=== PATIENT | female | born 1970 | race African-American/Black ===

== ENCOUNTER 2020-09-28 08:53 | Inpatient (IN) | payer OTHER, MEDICAID ==
[~2020-09-28] VITALS: Ht 165.1 cm; Wt 85.3 kg
[2020-09-28 10:27] LABS: BASOPHILS % 0.3 % (0.0-2.0); HEMATOCRIT. 35.9 % (36.0-48.0); HEMOGLOBIN. 11.1 g/dL (12.0-16.0); LYMPHOCYTES % 17.3 % (20.0-50.0); MEAN CORPUSCULAR HEMOGLOBIN 27.5 pg (28.0-32.0); MEAN CORPUSCULAR VOLUME 88.4 fL (81.0-99.0); MEAN PLATELET VOLUME 8.3 fl (7.4-10.4); MONOCYTES % 4.4 % (2.0-8.0); PLATELET 324 x1000/uL (130-400); RED BLOOD CELL COUNT 4.06 mill/uL (4.2-5.4); RED CELL DISTRIBUTION WIDTH 20.7 % (11.6-14.6)
[2020-09-28] MEDS ORDERED: DEXTROSE 50% WATER 50ML SYRINGE IV NR (11:00)
[2020-09-28] MEDS ORDERED: FENTANYL CITRATE/PF 50MCG/ML 2ML VIAL IV ONE (11:00)
[2020-09-28] MEDS ORDERED: ACETAMINOPHEN 650MG/20.3ML UDC GT PRN (11:15)
[2020-09-28] MEDS ORDERED: ONDANSETRON HCL 4MG/2ML INJ IV PRN (11:15)
[2020-09-28] MEDS ORDERED: HYDROCODONE/ACETAMINOPHEN 5/325MG TABLET PO PRN (11:15)
[2020-09-28] MEDS ORDERED: NA PHOS,M-B/NA PHOS,DI-BA ENEMA 118ML PR PRN (11:15)
[2020-09-28] MEDS ORDERED: DEXTROSE 50% WATER 50ML SYRINGE IV PRN (11:15)
[2020-09-28] MEDS ORDERED: DOCUSATE SODIUM 100MG CAPSULE PO PRN (11:15)
[2020-09-28] MEDS ORDERED: ACETAMINOPHEN 650MG SUPP PR PRN (11:15)
[2020-09-28] MEDS ORDERED: IPRATROPIUM/ALBUTEROL 0.5-3(2.5)MG/3ML NEB NEB PRN (11:15)
[2020-09-28] MEDS ORDERED: ASPIRIN 300MG SUPP PR NR (11:15)
[2020-09-28] MEDS ORDERED: MAGNESIUM/ALUMINUM HYDROXIDE/SIMETHICONE 30ML UDC PO PRN (11:15)
[2020-09-28] MEDS ORDERED: GUAIFENESIN 200MG/10ML SUGAR FREE UDC PO PRN (11:15)
[2020-09-28] MEDS ORDERED: DIPHENHYDRAMINE 50MG/ML VIAL IV PRN (11:15)
[2020-09-28] MEDS ORDERED: LORAZEPAM 0.5MG TABLET PO PRN (11:15)
[2020-09-28] MEDS ORDERED: NALOXONE HCL 0.4MG/ML VIAL IV PRN (11:30)
[2020-09-28] MEDS ORDERED: DEXT 10% WATER 1,000 ML IV ONE (11:30)
[2020-09-28] MEDS ORDERED: PIPERACILLIN/TAZ 3.375G PREMIX 50 ML IV SCH (12:00)
[2020-09-28] MEDS ORDERED: IOHEXOL-350 100 ML BOTTLE ONE (12:26)
[2020-09-28] MEDS: FAMOTIDINE 20MG/2ML VIAL IV SCH (12:43)
[2020-09-28] MEDS: ENOXAPARIN 40MG/0.4ML SYR SUBCUT SCH (12:43)
[2020-09-28] MEDS: BLOOD SUGAR DIAGNOSTIC STRIP TEST SCH ×2 (12:45→16:34)
[2020-09-28] MEDS ORDERED: LORAZEPAM 2MG/ML CPJ ONE (12:51)
[2020-09-28 13:23] LABS: BG BASE EXCESS -7.1 mmol/L (-2.0-2.0); BG CARBOXYHEMOGLOBIN 0.3 % (0.5-1.5); BG DEOXYHEMOGLOBIN 8.4 % (0.0-5.0); BG HCO3 ACT 15.8 mmol/L (22.0-26.0); BG METHEMOGLOBIN 0.2 % (0.0-1.5); BG OXYGEN SATURATION 91.6 % (92.0-98.5); BG OXYHEMOGLOBIN 91.1 % (94.0-97.0); BG PCO2 24.3 mmHg (35.0-45.0); BG PO2 70.3 mmHg (75.0-100.0); BG SAMPLE SITE RIGHT RADIAL; BG TOTAL HEMOGLOBIN 10.8 g/dL (12.0-18.0); BG VENT MODE ROOM AIR
[2020-09-28] MEDS ORDERED: LORAZEPAM 2MG/ML CPJ IV PRN (13:30)
[2020-09-28] MEDS: DEXTROSE 5% WATER 1,000 ML IV SCH (13:34)
[2020-09-28 14:22] LABS: CLARITY URINE CLEAR (CLEAR); COLOR URINE DARK YELLOW (YELLOW); KETONES URINE TRACE (NEGATIVE); LEUKOCYTE ESTERASE URINE 1+ (NEGATIVE); NITRITE URINE NEGATIVE (NEGATIVE); OCCULT BLOOD URINE 1+ (NEGATIVE); PROTEIN URINE 3+ (NEGATIVE); SPECIFIC GRAVITY URINE 1.036 (1.005-1.030)
[2020-09-28 15:20] LABS: *AMPHETAMINES SCREEN URINE NEGATIVE (NEGATIVE)
[2020-09-28 15:21] LABS: *BARBITURATES SCREEN URINE NEGATIVE (NEGATIVE); *BENZODIAZEPINES SCREEN URINE NEGATIVE (NEGATIVE); *COCAINE SCREEN URINE NEGATIVE (NEGATIVE); CANNABINOID URINE SCREEN NEGATIVE (NEGATIVE); METHADONE URINE SCREEN NEGATIVE (NEGATIVE); OPIATES URINE SCREEN NEGATIVE (NEGATIVE); PHENCYCLIDINE URINE SCREEN NEGATIVE (NEGATIVE)
[2020-09-28 17:23] LABS: CREATINE KINASE MB FRACTION 2.4 ng/mL (0.5-3.6)
[2020-09-28 17:45] LABS: HEPATITIS B SURFACE ANTIGEN NEGATIVE
[2020-09-28 18:14] LABS: HEPATITIS A AB IGM NEGATIVE (NEGATIVE)
[2020-09-28 22:40] VITALS: BP 132/94
[2020-09-28 23:25] LABS: CREATINE KINASE MB FRACTION 2.7 ng/mL (0.5-3.6)
[2020-09-28] MEDS: MORPHINE SULFATE 2 MG/ML CPJ (NOT FOR IM USE) IV PRN (23:29)
[2020-09-28] MEDS: PIPERACILLIN/TAZOBACTAM 3.375G in DEXT 5% WATER 50ML IV SCH (23:41)
[2020-09-29] VITALS: BP 132/94
[2020-09-29] MEDS: BLOOD SUGAR DIAGNOSTIC STRIP TEST SCH ×6 (00:48→20:17)
[2020-09-29] MEDS ORDERED: ASPI-1497 PO (02:24)
[2020-09-29] MEDS ORDERED: ATOR10TA69 PO (02:24)
[2020-09-29] MEDS ORDERED: FURO20TA4 PO (02:24)
[2020-09-29] MEDS ORDERED: NORT50CA PO (02:24)
[2020-09-29] MEDS ORDERED: DIGO125T2 PO (02:24)
[2020-09-29] MEDS ORDERED: CARV12.545 PO (02:24)
[2020-09-29 04:00] VITALS: BP 134/77
[2020-09-29] MEDS: PIPERACILLIN/TAZOBACTAM 3.375G in DEXT 5% WATER 50ML IV SCH ×4 (04:25→22:01)
[2020-09-29] MEDS: DEXTROSE 5% WATER 1,000 ML IV SCH ×2 (04:34→22:00)
[2020-09-29 07:26] LABS: BASOPHILS % 0.2 % (0.0-2.0); HEMATOCRIT. 34.6 % (36.0-48.0); HEMOGLOBIN. 11.4 g/dL (12.0-16.0); LYMPHOCYTES % 10.9 % (20.0-50.0); MEAN CORPUSCULAR HEMOGLOBIN 28.1 pg (28.0-32.0); MEAN CORPUSCULAR VOLUME 85.8 fL (81.0-99.0); MEAN PLATELET VOLUME 8.2 fl (7.4-10.4); MONOCYTES % 5.4 % (2.0-8.0); NEUTROPHILS % 83.5 % (40.0-76.0); PLATELET 212 x1000/uL (130-400); RED BLOOD CELL COUNT 4.04 mill/uL (4.2-5.4); RED CELL DISTRIBUTION WIDTH 20.8 % (11.6-14.6)
[2020-09-29 07:32] LABS: CHLORIDE 122 mEq/L (98-107)
[2020-09-29 07:45] LABS: LDL CHOLESTEROL 53 mg/dL (5-100)
[2020-09-29 07:47] LABS: HDL CHOLESTEROL 30 mg/dL (40-59)
[2020-09-29 07:54] LABS: T4 FREE 1.03 ng/dL (0.76-1.46)
[2020-09-29] MEDS ORDERED: POTASSIUM CHLORIDE 20MEQ TABLET SR PO NR (08:30)
[2020-09-29] MEDS: ASPIRIN 81MG EC TABLET PO SCH (08:48)
[2020-09-29] MEDS: FAMOTIDINE 20MG/2ML VIAL IV SCH (08:48)
[2020-09-29] MEDS: MORPHINE SULFATE 2 MG/ML CPJ (NOT FOR IM USE) IV PRN ×2 (08:49→13:16)
[2020-09-29 12:00] VITALS: BP 139/94
[2020-09-29] MEDS: ENOXAPARIN 40MG/0.4ML SYR SUBCUT SCH (13:15)
[2020-09-29 13:33] LABS: BG BASE EXCESS 0.1 mmol/L (-2.0-2.0); BG CARBOXYHEMOGLOBIN 1.1 % (0.5-1.5); BG DEOXYHEMOGLOBIN 12.6 % (0.0-5.0); BG FRACTION INSPIRED OXYGEN 21; BG HCO3 ACT 23.1 mmol/L (22.0-26.0); BG METHEMOGLOBIN 0.4 % (0.0-1.5); BG OXYGEN SATURATION 87.2 % (92.0-98.5); BG OXYHEMOGLOBIN 85.9 % (94.0-97.0); BG PCO2 32.3 mmHg (35.0-45.0); BG PH 7.472 (7.350-7.450); BG PO2 55.6 mmHg (75.0-100.0); BG SAMPLE SITE RIGHT RADIAL; BG TOTAL HEMOGLOBIN 12.5 g/dL (12.0-18.0); BG VENT MODE ROOM AIR
[2020-09-29 16:10] VITALS: BP 141/94
[2020-09-29 20:00] VITALS: BP 139/91
[2020-09-30] VITALS: BP 137/93
[2020-09-30] MEDS: MORPHINE SULFATE 2 MG/ML CPJ (NOT FOR IM USE) IV PRN ×3 (00:11→18:18)
[2020-09-30 04:00] VITALS: BP 135/90
[2020-09-30] MEDS: BLOOD SUGAR DIAGNOSTIC STRIP TEST SCH ×6 (04:00→23:02)
[2020-09-30] MEDS: PIPERACILLIN/TAZOBACTAM 3.375G in DEXT 5% WATER 50ML IV SCH ×4 (04:58→23:02)
[2020-09-30 06:10] LABS: BASOPHILS % 0.1 % (0.0-2.0); EOSINOPHILS % 0.2 % (0.0-5.0); HEMATOCRIT. 34.5 % (36.0-48.0); HEMOGLOBIN. 11.1 g/dL (12.0-16.0); LYMPHOCYTES % 14.7 % (20.0-50.0); MEAN CORPUSCULAR HEMOGLOBIN 27.4 pg (28.0-32.0); MEAN CORPUSCULAR VOLUME 85.4 fL (81.0-99.0); MEAN PLATELET VOLUME 8.9 fl (7.4-10.4); MONOCYTES % 5.7 % (2.0-8.0); NEUTROPHILS % 79.3 % (40.0-76.0); PLATELET 171 x1000/uL (130-400); RED BLOOD CELL COUNT 4.04 mill/uL (4.2-5.4); RED CELL DISTRIBUTION WIDTH 20.3 % (11.6-14.6)
[2020-09-30 08:00] VITALS: BP 140/65
[2020-09-30] MEDS: ASPIRIN 81MG EC TABLET PO SCH (08:48)
[2020-09-30] MEDS: FAMOTIDINE 20MG/2ML VIAL IV SCH (08:48)
[2020-09-30] MEDS: ENOXAPARIN 40MG/0.4ML SYR SUBCUT SCH (11:13)
[2020-09-30 12:00] VITALS: BP 116/81
[2020-09-30 16:00] VITALS: BP 135/94
[2020-09-30] MEDS: DEXTROSE 5% WATER 1,000 ML IV SCH ×2 (17:43→23:02)
[2020-09-30 20:21] VITALS: BP 130/85
[2020-10-01 00:15] VITALS: BP 133/92
[2020-10-01] MEDS: MORPHINE SULFATE 2 MG/ML CPJ (NOT FOR IM USE) IV PRN ×3 (01:02→17:18)
[2020-10-01 04:21] VITALS: BP 143/97
[2020-10-01] MEDS: PIPERACILLIN/TAZOBACTAM 3.375G in DEXT 5% WATER 50ML IV SCH ×4 (04:55→21:54)
[2020-10-01] MEDS: BLOOD SUGAR DIAGNOSTIC STRIP TEST SCH ×3 (06:04→17:05)
[2020-10-01 08:00] VITALS: BP 134/102
[2020-10-01] MEDS: ASPIRIN 81MG EC TABLET PO SCH (09:00)
[2020-10-01] MEDS: FAMOTIDINE 20MG/2ML VIAL IV SCH (10:03)
[2020-10-01] MEDS: DEXTROSE 5% WATER 1,000 ML IV SCH ×2 (10:04→21:50)
[2020-10-01 10:22] LABS: BASOPHILS % 0.3 % (0.0-2.0); EOSINOPHILS % 2.4 % (0.0-5.0); HEMATOCRIT. 34.8 % (36.0-48.0); HEMOGLOBIN. 11.3 g/dL (12.0-16.0); LYMPHOCYTES % 15.2 % (20.0-50.0); MEAN CORPUSCULAR HEMOGLOBIN 27.8 pg (28.0-32.0); MEAN CORPUSCULAR VOLUME 85.9 fL (81.0-99.0); MEAN PLATELET VOLUME 9.4 fl (7.4-10.4); MONOCYTES % 5.6 % (2.0-8.0); NEUTROPHILS % 76.5 % (40.0-76.0); PLATELET 146 x1000/uL (130-400); RED BLOOD CELL COUNT 4.05 mill/uL (4.2-5.4); RED CELL DISTRIBUTION WIDTH 20.9 % (11.6-14.6)
[2020-10-01 12:00] VITALS: BP 141/101
[2020-10-01] MEDS: ENOXAPARIN 40MG/0.4ML SYR SUBCUT SCH (12:53)
[2020-10-01 16:00] VITALS: BP 156/115
[2020-10-01 20:00] VITALS: BP 143/92
[2020-10-01 20:59] LABS: HEMATOCRIT 34.4 % (36.0-48.0); HEMOGLOBIN 11.3 g/dL (12.0-16.0); MEAN CORPUSCULAR HEMOGLOBIN 27.6 pg (28.0-32.0); MEAN CORPUSCULAR VOLUME 84.2 fL (81.0-99.0); PLATELET 148 x1000/uL (130-400); RED BLOOD CELL COUNT 4.09 mill/uL (4.2-5.4); RED CELL DISTRIBUTION WIDTH 20.9 % (11.6-14.6)
[2020-10-01 21:30] LABS: CHLORIDE 114 mEq/L (98-107)
[2020-10-02] VITALS: BP_SYST 148; BP_DIAS 11; BP_DIAS 111
[2020-10-02] MEDS: MORPHINE SULFATE 2 MG/ML CPJ (NOT FOR IM USE) IV PRN ×2 (01:47→09:44)
[2020-10-02 04:00] VITALS: BP 146/106
[2020-10-02 05:59] LABS: BASOPHILS % 0.2 % (0.0-2.0); EOSINOPHILS % 4.8 % (0.0-5.0); HEMATOCRIT. 35.5 % (36.0-48.0); HEMOGLOBIN. 11.4 g/dL (12.0-16.0); LYMPHOCYTES % 23.2 % (20.0-50.0); MEAN CORPUSCULAR HEMOGLOBIN 27.5 pg (28.0-32.0); MEAN CORPUSCULAR VOLUME 85.9 fL (81.0-99.0); MEAN PLATELET VOLUME 9.3 fl (7.4-10.4); MONOCYTES % 7.4 % (2.0-8.0); NEUTROPHILS % 64.4 % (40.0-76.0); PLATELET 146 x1000/uL (130-400); RED BLOOD CELL COUNT 4.13 mill/uL (4.2-5.4)
[2020-10-02 06:20] LABS: CHLORIDE 113 mEq/L (98-107)
[2020-10-02] MEDS: BLOOD SUGAR DIAGNOSTIC STRIP TEST SCH ×4 (06:27→17:00)
[2020-10-02] MEDS: PIPERACILLIN/TAZOBACTAM 3.375G in DEXT 5% WATER 50ML IV SCH ×4 (06:27→22:28)
[2020-10-02] MEDS: CLONIDINE 0.1MG TABLET PO PRN ×2 (06:38→16:22)
[2020-10-02] MEDS: DEXTROSE 5% WATER 1,000 ML IV SCH ×2 (06:38→16:21)
[2020-10-02 08:00] VITALS: BP 154/104
[2020-10-02] MEDS ORDERED: POTASSIUM CHLORIDE 20MEQ TABLET SR PO NR (09:00)
[2020-10-02] MEDS: ASPIRIN 81MG EC TABLET PO SCH (09:35)
[2020-10-02] MEDS: FAMOTIDINE 20MG TABLET PO SCH (09:35)
[2020-10-02] MEDS: ENOXAPARIN 40MG/0.4ML SYR SUBCUT SCH (11:49)
[2020-10-02 12:03] VITALS: BP 156/70
[2020-10-02 16:00] VITALS: BP 164/111
[2020-10-02 20:00] VITALS: BP 142/96
[2020-10-03] VITALS (7 sets, daily range): BP systolic 116–145; BP diastolic 86–100
[2020-10-03] MEDS: CLONIDINE 0.1MG TABLET PO PRN ×2 (01:21→13:48)
[2020-10-03] MEDS: DEXTROSE 5% WATER 1,000 ML IV SCH ×3 (02:38→22:28)
[2020-10-03] MEDS: PIPERACILLIN/TAZOBACTAM 3.375G in DEXT 5% WATER 50ML IV SCH ×4 (05:46→22:29)
[2020-10-03] MEDS: BLOOD SUGAR DIAGNOSTIC STRIP TEST SCH ×4 (05:46→17:10)
[2020-10-03] MEDS: MORPHINE SULFATE 2 MG/ML CPJ (NOT FOR IM USE) IV PRN (05:47)
[2020-10-03 07:42] LABS: BASOPHILS % 0.3 % (0.0-2.0); EOSINOPHILS % 6.2 % (0.0-5.0); HEMATOCRIT. 37.8 % (36.0-48.0); HEMOGLOBIN. 12.3 g/dL (12.0-16.0); LYMPHOCYTES % 21.5 % (20.0-50.0); MEAN CORPUSCULAR HEMOGLOBIN 27.3 pg (28.0-32.0); MEAN PLATELET VOLUME 9.1 fl (7.4-10.4); MONOCYTES % 8.2 % (2.0-8.0); NEUTROPHILS % 63.8 % (40.0-76.0); PLATELET 145 x1000/uL (130-400); RED CELL DISTRIBUTION WIDTH 20.8 % (11.6-14.6)
[2020-10-03 07:54] LABS: CHLORIDE 109 mEq/L (98-107)
[2020-10-03] MEDS ORDERED: POTASSIUM CHLORIDE 20MEQ TABLET SR PO NR ×2 (09:30→14:15)
[2020-10-03] MEDS: FAMOTIDINE 20MG TABLET PO SCH (10:23)
[2020-10-03] MEDS: ASPIRIN 81MG EC TABLET PO SCH (10:23)
[2020-10-03] MEDS: ENOXAPARIN 40MG/0.4ML SYR SUBCUT SCH (13:46)
[2020-10-04] VITALS: BP 109/76
[2020-10-04] MEDS: BLOOD SUGAR DIAGNOSTIC STRIP TEST SCH ×3 (00:37→12:13)
[2020-10-04 04:00] VITALS: BP 127/83
[2020-10-04] MEDS: DEXTROSE 5% WATER 1,000 ML IV SCH (05:30)
[2020-10-04 06:46] LABS: BASOPHILS % 0.2 % (0.0-2.0); EOSINOPHILS % 5.1 % (0.0-5.0); HEMATOCRIT. 36.5 % (36.0-48.0); HEMOGLOBIN. 11.9 g/dL (12.0-16.0); LYMPHOCYTES % 25.9 % (20.0-50.0); MEAN CORPUSCULAR HEMOGLOBIN 27.3 pg (28.0-32.0); MEAN CORPUSCULAR VOLUME 83.5 fL (81.0-99.0); MONOCYTES % 7.2 % (2.0-8.0); NEUTROPHILS % 61.6 % (40.0-76.0); PLATELET 153 x1000/uL (130-400); RED BLOOD CELL COUNT 4.37 mill/uL (4.2-5.4); RED CELL DISTRIBUTION WIDTH 20.2 % (11.6-14.6)
[2020-10-04 07:06] LABS: CHLORIDE 109 mEq/L (98-107)
[2020-10-04 08:10] VITALS: BP 151/106
[2020-10-04] MEDS: ASPIRIN 81MG EC TABLET PO SCH (08:46)
[2020-10-04] MEDS: FAMOTIDINE 20MG TABLET PO SCH (08:46)
[2020-10-04] MEDS ORDERED: HYDROCODONE/ACETAMINOPHEN 5/325MG TABLET PO NR (11:30)
[2020-10-04] MEDS ORDERED: LOSARTAN POTASSIUM 25 MG TABLET PO SCH (11:45)
[2020-10-04] MEDS ORDERED: FUROSEMIDE 40MG/4ML VIAL IVP SCH (11:45)
[2020-10-04 11:59] VITALS: BP 137/97
[2020-10-04] MEDS: ENOXAPARIN 40MG/0.4ML SYR SUBCUT SCH (11:59)
[2020-10-04] MEDS ORDERED: CARVEDILOL 3.125 MG TABLET PO SCH (21:00)
== END 2020-10-04 14:49 | disposition left against medical advice (07) | DRG 70 ==
LOC: ER 08:53 → MICUSO 11:07 → SUPCPDRO 13:04 → 6WST 22:09 → 7WST 09-29 16:09 → 6WST 09-30 10:36
PROVIDERS: ADMIT Internal Medicine; ATTEND Internal Medicine
PROC: 4B02XTZ Measurement of Cardiac Defibrillator, External Approach (ICD-10-PCS; principal; 2020-09-29)
DX: G93.41 Metabolic encephalopathy (principal); I50.43 Acute on chronic combined systolic (congestive) and diastolic (congestive) heart failure; N39.0 Urinary tract infection, site not specified; I69.351 Hemiplegia and hemiparesis following cerebral infarction affecting right dominant side; I42.9 Cardiomyopathy, unspecified; R47.01 Aphasia; I42.0 Dilated cardiomyopathy; I47.2 Ventricular tachycardia; K80.42 Calculus of bile duct with acute cholecystitis without obstruction; E16.2 Hypoglycemia, unspecified; D64.9 Anemia, unspecified; F14.10 Cocaine abuse, uncomplicated; J44.9 Chronic obstructive pulmonary disease, unspecified; Z20.822 Contact with and (suspected) exposure to COVID-19; I11.0 Hypertensive heart disease with heart failure; I25.10 Atherosclerotic heart disease of native coronary artery without angina pectoris; I27.21 Secondary pulmonary arterial hypertension; Z78.1 Physical restraint status; I25.2 Old myocardial infarction; Z87.891 Personal history of nicotine dependence; Z95.810 Presence of automatic (implantable) cardiac defibrillator; Z79.82 Long term (current) use of aspirin; Z79.899 Other long term (current) drug therapy; Z82.49 Family history of ischemic heart disease and other diseases of the circulatory system
CPT/HCPCS: 36415; 36600; 71045; 71275; 73560; 74177; 76700; 78227; 80048; 80053; 80061; 80076; 80305; 80320; 81003; 82140; 82248; 82375; 82550; 82553; 82805; 82962; 83036; 83605; 83735; 84132; 84439; 84443; 84484; 85025; 85027; 85379; 86705; 86709; 86803; 87340; 87426; 92610; 93005; 93306; 93970; 97116; 97162; 99291; A9537; J1200; J1650; J2060; J2270; J2543; J3010; J3490; J7042; J7060; J7070; Q9967; U0003; U0005; A4315; G0480